=== PATIENT | female | born 1980 | race Caucasian/White ===

== ENCOUNTER 2018-03-03 18:12 | Emergency (ER) | payer MEDICAID ==
[~2018-03-03] VITALS: Ht 162.6 cm; Wt 80.1 kg
[~2018-03-03 18:12] MED LIST: IRON15TA3 PO
[2018-03-03 19:01] LABS: BASOPHILS # (AUTO) 0.04 x10^3/uL (0-0.1); BASOPHILS % (AUTO) 1 % (0-1); EOSINOPHILS % (AUTO) 2 % (1-7); LYMPHOCYTES # (AUTO) 2.75 x10^3/uL (1-3.4); LYMPHOCYTES % (AUTO) 41 % (22-44); MD NO; MEAN CORPUSCULAR HEMOGLOBIN 29.1 pg (27.0-34.8); MEAN CORPUSCULAR HGB CONC 33.8 g/dL (32.4-35.8); MONOCYTES # (AUTO) 0.43 x10^3/uL (0.2-0.8); MONOCYTES % (AUTO) 6 % (2-9); NEUTROPHILS # (AUTO) 3.37 x10^3/uL (1.8-6.8); NEUTROPHILS % (AUTO) 51 % (42-75); PLATELET COUNT 271 x10^3/uL (130-400); RED BLOOD COUNT 4.34 x10^6/uL (3.82-5.3); RED CELL DISTRIBUTION WIDTH 17.1 % (9.6-15.2)
[2018-03-03 19:13] LABS: CALCIUM 8.2 mg/dL (8.5-10.1); CHLORIDE 107 mmol/L (98-107)
[2018-03-03 19:16] LABS: CULTURE INDICATED? YES; MICROSCOPIC AUTO
[2018-03-03 19:19] LABS: ALANINE AMINOTRANSFERASE 26 U/L (12-78); ALKALINE PHOSPHATASE 46 U/L (45-117); BILIRUBIN,TOTAL 0.5 mg/dL (0.2-1.0); CREATININE 0.72 mg/dL (0.55-1.02); TOTAL PROTEIN 7.7 g/dL (6.4-8.2)
[2018-03-03 19:22] LABS: ANION GAP 7 mmol/L (5-15)
[2018-03-03 20:46] VITALS: BP 111/65
== END 2018-03-03 20:49 | disposition home or self-care (01) ==
LOC: ED 20:25
DX: R55 Syncope and collapse (principal); N30.00 Acute cystitis without hematuria; E03.9 Hypothyroidism, unspecified
CPT/HCPCS: 36415; 71045; 80053; 81001; 84703; 85025; 87086; 93005; 99285

== ENCOUNTER 2018-05-23 00:45 | Emergency (ER) | payer MEDICAID ==
[~2018-05-23] VITALS: Ht 162.6 cm; Wt 81.0 kg
[2018-05-23] MEDS ORDERED: MAALOX/HYOSCYAMINE/LIDOCAINE 45 ML BTL ONE (01:21)
[2018-05-23 01:29] LABS: BASOPHILS # (AUTO) 0.04 x10^3/uL (0-0.1); BASOPHILS % (AUTO) 1 % (0-1); EOSINOPHILS % (AUTO) 3 % (1-7); LYMPHOCYTES # (AUTO) 2.64 x10^3/uL (1-3.4); LYMPHOCYTES % (AUTO) 37 % (22-44); MD NO; MEAN CORPUSCULAR HGB CONC 33.3 g/dL (32.4-35.8); MEAN PLATELET VOLUME 10.1 fL (7.4-10.4); MONOCYTES # (AUTO) 0.51 x10^3/uL (0.2-0.8); MONOCYTES % (AUTO) 7 % (2-9); NEUTROPHILS # (AUTO) 3.75 x10^3/uL (1.8-6.8); NEUTROPHILS % (AUTO) 53 % (42-75); PLATELET COUNT 281 x10^3/uL (130-400); RED BLOOD COUNT 3.88 x10^6/uL (3.82-5.3)
[2018-05-23] MEDS ORDERED: MAALOX/HYOSCYAMINE/LIDOCAINE 45 ML BTL PO ONE (01:30)
[2018-05-23 01:38] LABS: ANION GAP 8 mmol/L (5-15); CALCIUM 8.2 mg/dL (8.5-10.1); CHLORIDE 110 mmol/L (98-107); CREATININE 0.79 mg/dL (0.55-1.02)
[2018-05-23 01:39] LABS: ALANINE AMINOTRANSFERASE 28 U/L (12-78); ALBUMIN 3.6 g/dL (3.4-5.0)
[2018-05-23 01:41] LABS: ALKALINE PHOSPHATASE 48 U/L (45-117); BILIRUBIN,TOTAL 0.3 mg/dL (0.2-1.0); TOTAL PROTEIN 7.1 g/dL (6.4-8.2)
[2018-05-23 01:58] LABS: MICROSCOPIC NOT IND
[2018-05-23 02:04] LABS: CULTURE INDICATED? NO
[2018-05-23 02:27] VITALS: BP 90/42
== END 2018-05-23 02:33 | disposition home or self-care (01) ==
LOC: ED 01:04
DX: K29.00 Acute gastritis without bleeding (principal); E03.9 Hypothyroidism, unspecified; Z90.89 Acquired absence of other organs
CPT/HCPCS: 36415; 71045; 80053; 81003; 81025; 83690; 85025; 93005; 99284

== ENCOUNTER 2018-10-28 21:26 | Emergency (ER) | payer MEDICAID ==
[~2018-10-28] VITALS: Ht 162.6 cm; Wt 79.0 kg
--- NOTE | 2018-10-28 21:57 | NUR ---
PT TO ED FOR SHARP LT SIDED CP RADIATING TO LT ARM STARTING THIS MORNING DURING AN EPISODE OF COUGHING. PT STATES NO RELIEVEING FACTORS AND PAIN IS WORSE IN ARM WITH MOVEMENT. PT STATES OCCASIONAL NON-PRODUCTIVE COUGH. DENIES SORE THROAT. CONNECTED TO ALL MONITORS. VSS. EDMD ASSESSMENT COMPLETE. EKG COMPLETE. CXR COMPLETE. LAB AT TO DRAW AT THIS TIME. AWAITING RESULTS.
[2018-10-28 22:14] LABS: BASOPHILS # (AUTO) 0.03 x10^3/uL (0-0.1); BASOPHILS % (AUTO) 1 % (0-1); EOSINOPHILS # (AUTO) 0.14 x10^3/uL (0-0.4); EOSINOPHILS % (AUTO) 2 % (1-7); LYMPHOCYTES % (AUTO) 34 % (22-44); MD NO; MEAN CORPUSCULAR HGB CONC 31.4 g/dL (32.4-35.8); MEAN CORPUSCULAR VOLUME 66.8 fL (80-100); MEAN PLATELET VOLUME 9.4 fL (7.4-10.4); MONOCYTES # (AUTO) 0.45 x10^3/uL (0.2-0.8); MONOCYTES % (AUTO) 6 % (2-9); NEUTROPHILS # (AUTO) 3.95 x10^3/uL (1.8-6.8); NEUTROPHILS % (AUTO) 57 % (42-75); PLATELET COUNT 243 x10^3/uL (130-400); RED BLOOD COUNT 4.32 x10^6/uL (3.82-5.3); RED CELL DISTRIBUTION WIDTH 16.6 % (9.6-15.2)
[2018-10-28 22:22] LABS: ALANINE AMINOTRANSFERASE 28 U/L (12-78); ANION GAP 7 mmol/L (5-15); CALCIUM 7.8 mg/dL (8.5-10.1); CHLORIDE 111 mmol/L (98-107); CREATININE 0.59 mg/dL (0.55-1.02)
[2018-10-28 22:27] LABS: ALKALINE PHOSPHATASE 47 U/L (45-117); BILIRUBIN,TOTAL 0.2 mg/dL (0.2-1.0); TOTAL PROTEIN 7.2 g/dL (6.4-8.2)
[2018-10-28 23:32] LABS: TROPONIN I < 0.015 ng/mL (0.000-0.045)
[2018-10-28 23:56] VITALS: BP 116/69
== END 2018-10-29 00:03 | disposition home or self-care (01) ==
LOC: ED 22:20
DX: R07.89 Other chest pain (principal); R10.13 Epigastric pain; D50.0 Iron deficiency anemia secondary to blood loss (chronic)
CPT/HCPCS: 36415; 71045; 80053; 83690; 84484; 84703; 85025; 86677; 93005; 99284

== ENCOUNTER 2020-02-29 09:23 | Emergency (ER) | payer MEDICAID ==
[~2020-02-29] VITALS: Ht 162.6 cm; Wt 85.5 kg
--- NOTE | 2020-02-29 09:54 | NUR ---
PT REPORT FROM HORTENSIA LUIS. PT CARE TO BE ASSUMED.
[2020-02-29] MEDS ORDERED: CYCLOBENZAPRINE 10 MG TABLET ONE (09:56)
[2020-02-29] MEDS ORDERED: ONDANSETRON ODT 4 MG ONE (09:57)
[2020-02-29] MEDS ORDERED: KETOROLAC 30 MG/1 ML ONE (09:57)
[2020-02-29] MEDS ORDERED: HYDROcodone/APAP 5/325 TABLET ONE (09:58)
[2020-02-29] MEDS ORDERED: KETOROLAC 30 MG/1 ML IM ONE (10:00)
[2020-02-29] MEDS ORDERED: HYDROcodone/APAP 5/325 TABLET PO ONE (10:00)
[2020-02-29] MEDS ORDERED: ONDANSETRON ODT 4 MG PO ONE (10:00)
[2020-02-29] MEDS ORDERED: CYCLOBENZAPRINE 10 MG TABLET PO ONE (10:00)
--- NOTE | 2020-02-29 10:00 | NUR ---
C/O LOW BACK PAIN, STARTED YESTERDAY ABOUT 1500, WAS BENT OVER PUTTING CLOTHES IN DRYER, TOOK IBUPROFEN LAST NOC W/OUT RELIEF. DENIES HX BACK PROBLEMS, N/V, DIARRHEA, CONSTIIPATION. . ALSO C/O LUQ PAIN, STARTED YESTERDAY. OVARIAN CYST SURGERY IN AUGUST. LMP: 02/12/20 LAST BM: YESTERDAY. LAST ORAL INTAKE: FOOD LAST NOC.
[2020-02-29] MEDS ORDERED: FERR325T18 PO (10:03)
--- NOTE | 2020-02-29 10:15 | NUR ---
PT MEDICATED PER EMAR
[2020-02-29 10:28] LABS: ALANINE AMINOTRANSFERASE 64 U/L (12-78); ALBUMIN 3.9 g/dL (3.4-5.0); ANION GAP 7 mmol/L (5-15); CALCIUM 8.3 mg/dL (8.5-10.1); CHLORIDE 107 mmol/L (98-107); CREATININE 0.61 mg/dL (0.55-1.02)
[2020-02-29 10:30] LABS: ALKALINE PHOSPHATASE 49 U/L (45-117); BILIRUBIN,TOTAL 0.4 mg/dL (0.2-1.0); TOTAL PROTEIN 7.2 g/dL (6.4-8.2)
[2020-02-29 10:36] LABS: MICROSCOPIC INDICATED
[2020-02-29 11:19] LABS: MEAN CORPUSCULAR HEMOGLOBIN 25.9 pg (27.0-34.8); MEAN CORPUSCULAR HGB CONC 32.4 g/dL (32.4-35.8); MEAN CORPUSCULAR VOLUME 79.9 fL (80-100); RED BLOOD COUNT 4.94 x10^6/uL (3.82-5.3); RED CELL DISTRIBUTION WIDTH 30.8 % (9.6-15.2)
[2020-02-29 11:25] LABS: MD YES; SEG#(MANUAL) 3.37 x10^3/uL (1.8-6.8); SEGS% (MANUAL) 51 % (42-75)
[2020-02-29 11:26] LABS: BASOS#(MANUAL) 0.07 x10^3/uL (0-0.1); BASOS% (MANUAL) 1 % (0-1); EOS#(MANUAL) 0.26 x10^3/uL (0.0-0.4); EOS% (MANUAL) 4 % (1-7); LYMPH#(MANUAL) 2.51 x10^3/uL (1-3.4); LYMPHS% (MANUAL) 38 % (22-44); MONOS% (MANUAL) 6 % (2-9)
[2020-02-29 11:27] LABS: MEAN PLATELET VOLUME 12.2 fL (7.4-10.4); PLATELET COUNT 247 x10^3/uL (130-400)
[2020-02-29 11:28] LABS: <PLATELET ESTIMATE> ADEQUATE; <RBC MORPHOLOGY> NORMAL; LARGE PLATELETS 1+
--- NOTE | 2020-02-29 11:55 | NUR ---
PT SLEEPING; EVEN CHEST RISE & FALL NOTED
[2020-02-29 12:58] VITALS: BP 111/60
== END 2020-02-29 13:38 | disposition home or self-care (01) ==
LOC: ED 13:09
DX: S39.012A Strain of muscle, fascia and tendon of lower back, initial encounter (principal); E03.9 Hypothyroidism, unspecified; Z90.49 Acquired absence of other specified parts of digestive tract; X58.XXXA Exposure to other specified factors, initial encounter; Y93.89 Activity, other specified; Y92.89 Other specified places as the place of occurrence of the external cause; Y99.8 Other external cause status
CPT/HCPCS: 36415; 80053; 81001; 83690; 84703; 85025; 87086; 96372; 99284; J1885; Q0162

== ENCOUNTER 2020-04-27 21:56 | Emergency (ER) | payer MEDICAID ==
[~2020-04-27] VITALS: Ht 154.9 cm; Wt 84.5 kg
[~2020-04-27 21:56] MED LIST changes: +FERR325T18 PO
[2020-04-27 22:59] LABS: BASOPHILS % (AUTO) 1 % (0-1); EOSINOPHILS % (AUTO) 4 % (1-7); LYMPHOCYTES % (AUTO) 34 % (22-44); MEAN CORPUSCULAR HEMOGLOBIN 29.4 pg (27.0-34.8); MEAN CORPUSCULAR HGB CONC 33.6 g/dL (32.4-35.8); MEAN PLATELET VOLUME 9.9 fL (7.4-10.4); MONOCYTES % (AUTO) 7 % (2-9); NEUTROPHILS % (AUTO) 54 % (42-75); PLATELET COUNT 231 x10^3/uL (130-400); RED BLOOD COUNT 4.64 x10^6/uL (3.82-5.3); RED CELL DISTRIBUTION WIDTH 12.5 % (9.6-15.2)
--- NOTE | 2020-04-27 23:01 | NUR ---
A&o x4, answering questions appropriately. C/o L flank pain radiating to LLQ x 3 days with associated nausea/diarrhea, denies vomiting. Abd soft, flat, nondistened. No tenderness/rebound tenderness noted on palpation. Also c/o mild CORREIA, denies vision changes/neuro sx. Denies fever/chills. States only has hx of appendectomy as a child. Ambulating independently, steady gait. Bed low, side rails up, call jolly within reach
[2020-04-27 23:02] LABS: MD NO
[2020-04-27 23:06] LABS: ALANINE AMINOTRANSFERASE 68 U/L (12-78); ALBUMIN 3.8 g/dL (3.4-5.0); ANION GAP 3 mmol/L (5-15); CALCIUM 8.5 mg/dL (8.5-10.1); CHLORIDE 110 mmol/L (98-107); CREATININE 0.65 mg/dL (0.55-1.02)
[2020-04-27 23:11] LABS: ALKALINE PHOSPHATASE 67 U/L (45-117); BILIRUBIN,TOTAL 0.3 mg/dL (0.2-1.0); TOTAL PROTEIN 7.4 g/dL (6.4-8.2)
--- NOTE | 2020-04-27 23:45 | NUR ---
PT NEED IV FOR CT.
[2020-04-28] MEDS ORDERED: OMNIPAQUE 350 MG/ML, 100ML BOTTLE ONE (00:46)
--- NOTE | 2020-04-28 00:57 | NUR ---
Traveled to [place] with tech. Delay in [place] d/t no IV access r/t pt care needs
[2020-04-28 01:42] LABS: MICROSCOPIC INDICATED
[2020-04-28 02:06] VITALS: BP 125/78
== END 2020-04-28 02:08 | disposition home or self-care (01) ==
LOC: ED 23:10
DX: N83.292 Other ovarian cyst, left side (principal)
CPT/HCPCS: 36415; 74177; 80053; 81001; 84703; 85025; 87086; 99285; Q9967